=== PATIENT | female | born 1945 | race Caucasian/White ===

== ENCOUNTER 2017-04-13 09:48 | Emergency (ER) | payer MEDICARE, BC ==
[~2017-04-13] VITALS: Ht 162.6 cm; Wt 75.0 kg
[2017-04-13] MEDS ORDERED: ESCITALOPRAM OX10 MG PO (10:00)
[2017-04-13] MEDS ORDERED: BUPROPION150 M4 PO (10:00)
[2017-04-13] MEDS ORDERED: METFORMIN500 MG PO (10:01)
[2017-04-13] MEDS ORDERED: LORTAB 5-325 MG1 TAB PO (10:40)
[2017-04-13] MEDS ORDERED: FLEXERIL PO (10:40)
[2017-04-13] MEDS ORDERED: BUDEPRION150 MG PO (10:40)
[2017-04-13 10:44] LABS: URINE BILIRUBIN - DIPSTICK NEGATIVE (NEGATIVE); URINE BLOOD DIPSTICK NEGATIVE (NEGATIVE); URINE CLARITY CLEAR; URINE COLOR YELLOW; URINE GLUCOSE - DIPSTICK NEGATIVE (NEGATIVE); URINE KETONE NEGATIVE (NEGATIVE); URINE LEUK ESTERASE NEGATIVE (NEGATIVE); URINE NITRITE - DIPSTICK NEGATIVE (Negative); URINE PROTEIN - DIPSTICK NEGATIVE (NEG-TRACE); URINE UROBILINOGEN - DIPSTICK 0.2 E.U./dL (0.2)
[2017-04-13] MEDS ORDERED: EC-NAPROSYN500 MG PO (11:31)
[2017-04-13 11:40] VITALS: BP 134/70
== END 2017-04-13 11:40 | disposition home or self-care (01) ==
LOC: ED 09:48
PROVIDERS: Emergency Medicine
DX: M54.41 Lumbago with sciatica, right side (principal); E11.9 Type 2 diabetes mellitus without complications; Z79.84 Long term (current) use of oral hypoglycemic drugs